=== PATIENT | female | born 1970 | race Caucasian/White ===

== ENCOUNTER 2018-01-06 21:38 | Emergency (ER) | payer OTHER ==
[2018-01-06] MEDS ORDERED: NITROGLYCERIN 0.4 MG 25 EA TAB SL ONE (21:58)
[2018-01-06] MEDS ORDERED: SODIUM CHLORIDE 0.9% (FLUSH) 10 ML SYG IV PRN (21:58)
[2018-01-06] MEDS ORDERED: ASPIRIN TABLET 325 MG TAB PO ONE (21:58)
--- NOTE | 2018-01-06 22:29 | RAD ---
EXAM DESCRIPTION: Chest,1 View CLINICAL HISTORY: 47 years Female, chest pain COMPARISON: None. FINDINGS: No consolidation. No pneumothorax. No significant pleural effusion. Cardiomediastinal silhouette is unremarkable. Osseous structures are unremarkable. IMPRESSION: No acute findings. Electronically signed by: Alpesh Blackman MD 01/06/2018 10:28 PM CDT
--- NOTE | 2018-01-06 23:43 | ED.PDOC ---
History of Present Illness - General Chief Complaint: Chest Pain/MS Stated Complaint: Chest pain Time Seen by Provider: 01/06/18 21:58 Source: patient Exam Limitations: no limitations - History of Present Illness Initial Comments: Marlena Bal 47 y/o female came to [facility] after feeling chest discomfort on the way home riding on a corn picker truck driven by the ;had also mild sob with burning pain on deep breathing.Has had chest pain symptoms in the past stating that she had asthmatic bronchitis.She has asthma ,DM2,and HTN.Denies diaphoresis ,N/V,dizziness. Timing/Duration: 1-3 hours Severity/Quality: pressure Location: central Chest Pain Radiation: no radiation Prior Chest Pain/Cardiac Workup: no prior cardiac workup Improving Factors: nothing Worsening Factors: nothing Nitro Today/Relief: no nitro taken today, 0.4 mg x 1 Aspirin Treatment Today: no aspirin today, 81 mg x 4, provided by ED Associated Symptoms: shortness of breath Allergies/Adverse Reactions: Allergies Sulfamethoxazole w/Trimethoprim [From Bactrim] Allergy (Mild, Verified 07/03/14 10:07) Other makes her heart race; causes dizziness Alprazolam [From Xanax] Allergy (Verified 01/06/18 22:00) Celecoxib [From Celebrex] Allergy (Verified 01/06/18 22:00) Morphine Adverse Reaction (Verified 01/06/18 22:00) Home Medications: Ambulatory Orders Albuterol Sulfate [Accuneb] 0.63 mg IN QID 03/14/13 Metformin HCl 250 mg PO BID 03/14/13 Venlafaxine Xr [Effexor Xr] 150 mg PO DAILY 03/14/13 Montelukast [Singulair] 10 mg PO DAILY 03/06/16 Oxybutynin Chloride 5 mg PO BEDTIME 03/06/16 Review of Systems - Review of Systems Constitutional: States: no symptoms reported EENTM: States: no symptoms reported Respiratory: States: see HPI Cardiology: States: see HPI Gastrointestinal/Abdominal: States: no symptoms reported Genitourinary: States: no symptoms reported Musculoskeletal: States: no symptoms reported Skin: States: no symptoms reported Neurological: States: no symptoms reported Endocrine: States: no symptoms reported Past Medical History (General) - Patient Medical History Hx Stroke: No Hx Asthma: Yes Hx Congestive Heart Failure: No Hx Diabetes: Yes Surgical History: appendectomy, other - left knee, - Vaccination History Hx Influenza Vaccination: No Hx Pneumococcal Vaccination: No - Social History Hx Tobacco Use: Yes Years Tobacco Use: 1 Cigarettes Packs Per Day: 10 Hx Depression: Yes Hx Physical Abuse: No Hx Emotional Abuse: No - Female History Patient : No Family Medical History - Family History Mother Living Status: Still Living Hx Family Hypertension: Yes Hx Family Diabetes: Yes Physical Exam - Physical Exam General Appearance: Alert, Comfortable, No apparent distress Eyes, Ears, Nose, Throat Exam: PERRL/EOMI, normal ENT inspection, pharynx normal Neck: non-tender, full range of motion, supple, normal inspection Respiratory: chest non-tender, lungs clear, normal breath sounds, no respiratory distress Cardiovascular/Chest: normal peripheral pulses, regular rate, rhythm, no murmur Peripheral Pulses: radial,right: 2+, radial,left: 2+ Gastrointestinal/Abdominal: normal bowel sounds, non tender, soft, no organomegaly Extremity: no pedal edema, no calf tenderness Neurologic: no motor/sensory deficits, alert, oriented x 3 Skin Exam: normal color, warm/dry Progress - Progress Progress: 01/07/18 01:36 Vital Signs - 8 hr 01/06/18 22:02 O2 Sat by Pulse 97 Oximetry 01/07/18 01:42 No chest pains the last 2 hours ;presently asymptomatic - Results/Orders Results/Orders: 01/06/18 21:58 IV Care:Saline Lock per Protoc QSHIFT Telemetry .ONCE Sodium Chloride 0.9% (Flush) [Saline Flush Syringe] 10 ml IV PRN PRN EKG Stat Pulse Ox Stat 01/06/18 23:45 EKG STAT Laboratory Results - last 24 hr 01/06/18 01/06/18 01/06/18 22:15 22:15 23:30 WBC 11.5 H RBC 4.61 Hgb 13.9 Hct 41.6 MCV 90.2 MCH 30.3 MCHC 33.6 RDW 13.7 Plt Count 270 MPV 8.3 Absolute Neuts (auto) 6.90 H Absolute Lymphs (auto) 3.60 H Absolute Monos (auto) 0.70 Absolute Eos (auto) 0.20 Absolute Basos (auto) 0.10 Neutrophils % 59.9 Lymphocytes % 31.5 Monocytes % 6.5 Eosinophils % 1.5 Basophils % 0.6 PT 10.3 INR 0.890 PTT (SP) 36.2 D-Dimer, Quantitative 270 H* Sodium 136 Potassium 3.6 Chloride 99 L Carbon Dioxide 28 Anion Gap 12.6 BUN 14 Creatinine 0.78 BUN/Creatinine Ratio 17.9 Random Glucose 128 H Serum Osmolality 274.1 L Calcium 9.4 Magnesium 2.0 Total Bilirubin 0.3 Direct Bilirubin < 0.1 Indirect Bilirubin 0.2 AST 18 ALT 24 Alkaline Phosphatase 64 Creatine Kinase 89 CK-MB (CK-2) 1.5 CK-MB (CK-2) % Not Reportable Troponin I < 0.02 < 0.02 B-Natriuretic Peptide < 5.0 Serum Total Protein 7.3 Albumin 4.2 - EKG/XRAY/CT EKG: Sinus, Unchanged from - from EKG 2015 Comments: HR-88 ;low voltage qrs-anterior leads XRAY: chest - no acute abnormalities CT Ordered: Yes - CTA Chest-no acute intra thoracic abnormality;No PE - Additional EKG/XRAY/Consults EKG #2: Sinus, Unchanged from - -EKG Comments: HR -85;low voltage qrs Departure - Departure Clinical Impression: Chest pain, unspecified Qualifiers: Chest pain type: unspecified Qualified Code(s): R07.9 - Chest pain, unspecified Time of Disposition: :13 Disposition: Discharge to Home or Self Care Departure Forms: ED Discharge - Pt. Copy, Patient Portal Self Enrollment Instructions: DI for Chest Pain, Quitting Smoking for Older Adults, Quitting Smoking, Drugs to Help You Stop Using Tobacco, Smoking: Not Just Harmful to Your Lungs and Heart Referrals: MARK MORELAND [Primary Care Provider] - 1-2 Weeks Home Medications: Ambulatory Orders Albuterol Sulfate [Accuneb] 0.63 mg IN QID 03/14/13 Metformin HCl 250 mg PO BID 03/14/13 Venlafaxine Xr [Effexor Xr] 150 mg PO DAILY 03/14/13 Montelukast [Singulair] 10 mg PO DAILY 03/06/16 Oxybutynin Chloride 5 mg PO BEDTIME 03/06/16 Additional Instructions: RETURN TO ER NEEDED;Follow up with primary Md 09 January 2018 for Heart and Lung specialist referral Continue with all home medications;Need to take Baby Aspirin 81 mg. daily(over the counter)
[2018-01-07] MEDS ORDERED: SODIUM CHLORIDE 0.9% 1000ML 1,000 ML IVS ONE (00:31)
--- NOTE | 2018-01-07 00:52 | CT ---
EXAM: CT CHEST ANGIOGRAPHY WITH IV CONTRAST HISTORY: chest pain/elevated d-dimer COMPARISON: None Available TECHNIQUE: Multiple helical axial tomographic images were obtained of the chest following administration of intravenous contrast per angiographic protocol. MIP reformatted images were obtained. This exam was performed according to our departmental dose-optimization program, which includes automated exposure control, adjustment of the mA and/or kV according to patient size and/or use of iterative reconstruction technique. FINDINGS: Thyroid gland: unremarkable. Axilla: unremarkable. Pulmonary arteries: Pulmonary arteries appear patent. No evidence of pulmonary embolism. Aorta: No evidence of aortic dissection or aneurysm. Mediastinum: Unremarkable. No adenopathy. Lungs/airways: No consolidation. Airways are patent. Small granuloma in the posterior left lower lobe is present. Pleural spaces: No significant pleural effusion. No pneumothorax. Osseous: No acute findings. 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 There is a small Schmorl's node in the superior endplate of T2. Soft tissues: Unremarkable. Visualized abdomen: Unremarkable. IMPRESSION: No acute intrathoracic abnormality. Electronically signed by: Alpesh Blackman MD 01/07/2018 12:51 AM CDT
[2018-01-07 02:54] VITALS: BP 133/79; TEMP 97.9; O2SAT 95
== END 2018-01-07 02:30 | disposition home or self-care (01) ==
LOC: ER 21:38
DX: R07.9 Chest pain, unspecified (principal); J45.909 Unspecified asthma, uncomplicated; E11.9 Type 2 diabetes mellitus without complications; I10 Essential (primary) hypertension; F17.210 Nicotine dependence, cigarettes, uncomplicated; F32.9 Major depressive disorder, single episode, unspecified; Z79.899 Other long term (current) drug therapy; Z79.84 Long term (current) use of oral hypoglycemic drugs
CPT/HCPCS: 36415; 71045; 71275; 80048; 80076; 82550; 82553; 83880; 84484; 85025; 85379; 85610; 85730; 93005; 94760; J7030

== ENCOUNTER → 2018-07-10 | Outpatient (CLI) | payer OTHER ==
--- NOTE | 2018-07-11 14:39 | MAM ---
EXAM DESCRIPTION: 3D Screening BILATERAL : Digital Mammography. CLINICAL HISTORY: 48 years Female SCREENING . "My right breast has a spot that is not healed after one month." No personal history or family history of breast cancer. Remote family history of ovarian cancer. Childbirth. Postmenopausal. No hormone replacement.. Lifetime risk of developing breast cancer (Tyrer-Cuzick model)(%): 6.6. COMPARISON: prior. No prior reports available. TECHNIQUE: Bilateral CC and MLO projection full-field images, digital tomosynthesis mammographic technique. Bilateral digital 2-D full-field MLO images. CAD not available for tomosynthesis or 2-D images. FINDINGS: The breast parenchymal density pattern is: Almost entirely fatty. No skin thickening or nipple retraction. Bilateral solitary microcalcifications and bilateral eggshell calcifications. No new focal, stellate mass or density, focal asymmetry , and no suspicious microcalcifications bilaterally. Stable mammograms compared to prior study. Taking into account, differences in mammographic technique. IMPRESSION: Benign exam. BIRAD CATEGORY: 2 BENIGN FINDINGS. RECOMMENDATIONS: FOLLOW UP: Routine digital bilateral mammographic screening, one year interval from July 2018. Written communication explaining the IMPRESSION and follow-up, will be mailed to the patient and referring health care provider. According to the [employer], yearly mammograms are recommended starting at age 40 and continuing as long as a woman is in good health. Any breast change noted on a breast self-exam should be reported promptly to the patient's healthcare provider. Breast MRI is recommended for women with an approximately 20-25% or greater lifetime risk of breast cancer, including women with a strong family history of breast or ovarian cancer and women who have been treated for Hodgkin's disease. A negative mammographic report should not delay tissue diagnosis in patients with significant clinical history or physical findings. Extremely dense breast tissue limits the sensitivity of digital mammography. Electronically signed by: Junior Ghosh MD 07/11/2018 10:22 AM YEAST FERMENTATION ATTENDANT
== END ==
LOC: MAMMO 14:07
PROVIDERS: ATTEND General Practice
DX: Z12.31 Encounter for screening mammogram for malignant neoplasm of breast (principal)